=== PATIENT | female | born 1975 | race Caucasian/White ===

== ENCOUNTER → 2018-12-18 | Outpatient (CLI) | payer BC, OTHER ==
--- NOTE | 2018-12-19 11:50 | MM ---
Reason for exam: screening (asymptomatic). Last mammogram was performed 2 years and 10 months ago. History: Family history of breast cancer in paternal grandmother at age 42 and breast cancer in maternal aunt at age 58. Took hormonal contraceptives for 15 years beginning at age 34. Physical Findings: A clinical breast exam by your physician is recommended on an annual basis and results should be correlated with mammographic findings. MG 3D Screening Mammo W/Cad Bilateral CC and MLO view(s) were taken. Prior study comparison: March 02, 2016, bilateral MG 3d screening mammo w/cad. October 07, 2014, bilateral MG screening mammo w CAD. The breast tissue is heterogeneously dense. This may lower the sensitivity of mammography. No significant new finding when compared with prior studies. ASSESSMENT: Negative, BI-RAD 1 RECOMMENDATION: Routine screening mammogram of both breasts in 1 year.
== END | disposition home or self-care (01) ==
LOC: RADMAMWWP 16:29
PROVIDERS: ATTEND Family Medicine
DX: Z12.31 Encounter for screening mammogram for malignant neoplasm of breast (principal)
CPT/HCPCS: 77063; 77067

== ENCOUNTER → 2020-08-21 | Outpatient (CLI) | payer OTHER ==
--- NOTE | 2020-08-25 13:20 | MM ---
Reason for exam: screening (asymptomatic). Last mammogram was performed 1 year and 8 months ago. History: Family history of breast cancer in paternal grandmother at age 42 and breast cancer in maternal aunt at age 58. Took hormonal contraceptives for 15 years beginning at age 34. Physical Findings: A clinical breast exam by your physician is recommended on an annual basis and results should be correlated with mammographic findings. MG 3D Screening Mammo W/Cad Bilateral CC and MLO view(s) were taken. Prior study comparison: December 18, 2018, bilateral MG 3d screening mammo w/cad. March 02, 2016, bilateral MG 3d screening mammo w/cad. The breast tissue is extremely dense which could obscure a lesion on mammography. No significant changes when compared with prior studies. ASSESSMENT: Negative, BI-RAD 1 RECOMMENDATION: Routine screening mammogram of both breasts in 1 year.
== END | disposition home or self-care (01) ==
LOC: RADMAMWWP 15:45
PROVIDERS: ATTEND Obstetrics & Gynecology
DX: Z12.31 Encounter for screening mammogram for malignant neoplasm of breast (principal); Z80.3 Family history of malignant neoplasm of breast
CPT/HCPCS: 77063; 77067

== ENCOUNTER → 2020-11-18 | Outpatient (CLI) | payer OTHER ==
[2020-11-18 07:50] LABS: Basophils # (A) 0.1 k/uL (0-0.2); Basophils % (A) 1 %; Eosinophils # (A) 0.4 k/uL (0-0.7); Eosinophils % (A) 6 %; HCT 41.6 % (34.0-46.0); HGB 14.3 gm/dL (11.4-16.0); Lymphocytes # (A) 1.8 k/uL (1.0-4.8); Lymphocytes % (A) 26 %; MCH 28.8 pg (25.0-35.0); MCHC 34.3 g/dL (31.0-37.0); MCV 83.9 fL (80.0-100.0); Mean Platelet Volume 6.9; Monocytes # (A) 0.4 k/uL (0-1.0); Monocytes % (A) 6 %; Neutrophils # (A) 4.1 k/uL (1.3-7.7); Neutrophils % (A) 60 %; Platelet Count 236 k/uL (150-450); RBC 4.96 m/uL (3.80-5.40); RDW 12.6 % (11.5-15.5); WBC 6.8 k/uL (3.8-10.6)
== END | disposition home or self-care (01) ==
LOC: LABPAT 07:12
PROVIDERS: ATTEND Obstetrics & Gynecology
DX: Z01.812 Encounter for preprocedural laboratory examination (principal); N92.0 Excessive and frequent menstruation with regular cycle; N84.1 Polyp of cervix uteri
CPT/HCPCS: 36415; 85025

== ENCOUNTER 2020-11-24 07:48 | Day surgery (SDC) | payer OTHER ==
[2020-11-20 09:12] VITALS: BMI 28.1
[~2020-11-24 07:48] MED LIST: DEXAMETHASONE SOD PHOSPHATE 4 MG/ML 1 ML VIAL IV ONE; HYDROmorphone 0.5 MG/0.5 ML SYRINGE IVP PRN; LACTATED RINGERS 1,000 ML IV SCH; ONDANSETRON 4 MG/2 ML VIAL IVP ONE; Pre Op ABX Message 1 EACH MISC MISCELLANE ONE
[2020-11-24] MEDS ORDERED: PROPOFOL 10 MG/ML 20 ML VIAL IV ONE (09:17)
[2020-11-24] MEDS ORDERED: fentaNYL (PF) 50 MCG/ML 2 ML AMP ONE (09:17)
[2020-11-24] MEDS ORDERED: LIDOCAINE 1% INJ 10MG/ML (20 ML MDV) ONE (09:17)
[2020-11-24] MEDS ORDERED: MIDAZOLAM 2 MG/2 ML VIAL ONE (09:17)
--- NOTE | 2020-11-24 09:49 | P.OP ---
Date of Procedure: 11/24/20 Preoperative Diagnosis: Menorrhagia, previous uterine ablation Postoperative Diagnosis: Same, scarred endometrial cavity, grade 3 uterine prolapse Procedure(s) Performed: Hysteroscopy, D&C Anesthesia: SAMANTHAA Surgeon: Vero Villagomez Estimated Blood Loss (ml): 10 IV fluids (ml): 300 Urine output (ml): 200 Pathology: other (Endometrial curettings) Condition: stable Disposition: PACU Operative Findings: The endometrial cavity is scarred, at best I am able to enter only the lower uterine segment. There is a grade 3 uterine prolapse noted. Description of Procedure: Patient is brought to the operating suite where a general anesthetic is administered without difficulty. She's placed in the dorsal lithotomy position. The cervix, vagina, perineal bodies are all prepped and draped in usual sterile fashion. The appropriate timeout is performed to assure proper patient and procedural identification. Antibiotics are not deemed necessary. Urine hCG is negative. The bladder is drained for approximately 200 mL of clear yellow urine. Weighted speculum was placed into the vagina. Anterior lip of the cervix is grasped with a double-tooth tenaculum. Uterus only sounds to a depth of 4-5 cm. There is a grade 3 uterine prolapse noted. The cervix is gently and systematically dilated using Hanks dilators. The hysteroscope was placed. At best, I may be into the lower uterine segment. There is scarring noted from the previous ablation. I do not fourth the scar tissue in an effort to avoid uterine perforation. A small sharp curette is used and a curettage was performed of the lower uterine segment and cervix. This is sent to pathology for evaluation. The hysteroscope was once again placed and no additional tissue is visualized. All sponge needle and enhancement counts are correct. Instrumentation is removed from the vagina. Cervix and uterus are clean and dry. Patient is brought back to recovery room in very good condition with a blood pressure 122/65, pulse 60. She will follow-up with me in the office in 2 weeks. Please note that Toradol is given prior to leaving the operative suite.
[2020-11-24 09:52] VITALS: TEMP 97.6
[2020-11-24 10:03] VITALS: RESP 16
[2020-11-24 10:24] VITALS: BP 145/75; PULSE 66
== END 2020-11-24 10:38 | disposition home or self-care (01) ==
LOC: OR 07:48
PROVIDERS: ATTEND Obstetrics & Gynecology
DX: N85.00 Endometrial hyperplasia, unspecified (principal); N92.0 Excessive and frequent menstruation with regular cycle; N81.4 Uterovaginal prolapse, unspecified; E03.9 Hypothyroidism, unspecified; Z86.718 Personal history of other venous thrombosis and embolism; Z86.711 Personal history of pulmonary embolism; Z98.890 Other specified postprocedural states; Z82.49 Family history of ischemic heart disease and other diseases of the circulatory system; Z80.3 Family history of malignant neoplasm of breast; Z80.8 Family history of malignant neoplasm of other organs or systems
CPT/HCPCS: 81025; 88305; 58558; J2250; J1100; J2405; J2001; J3010; J2704

== ENCOUNTER → 2021-01-25 | Outpatient (CLI) | payer OTHER ==
[2021-01-25 10:41] LABS: African American GFR (CKD) >90 (>60 ml/min/1.73 sqM); Anion Gap 6 mmol/L; Blood Urea Nitrogen 12 mg/dL (7-17); Carbon Dioxide 26 mmol/L (22-30); Chloride 106 mmol/L (98-107); Glucose 95 mg/dL (74-99); Non-African American GFR(CKD) >90 (>60 ml/min/1.73 sqM); Potassium 4.8 mmol/L (3.5-5.1); Sodium 138 mmol/L (137-145)
[2021-01-25 10:52] LABS: Basophils # (A) 0.1 k/uL (0-0.2); Basophils % (A) 1 %; Eosinophils # (A) 0.5 k/uL (0-0.7); Eosinophils % (A) 8 %; HCT 42.5 % (34.0-46.0); HGB 13.9 gm/dL (11.4-16.0); Lymphocytes # (A) 1.9 k/uL (1.0-4.8); Lymphocytes % (A) 32 %; MCH 27.7 pg (25.0-35.0); MCHC 32.7 g/dL (31.0-37.0); MCV 84.8 fL (80.0-100.0); Mean Platelet Volume 7.1; Monocytes # (A) 0.3 k/uL (0-1.0); Monocytes % (A) 5 %; Neutrophils % (A) 50 %; Platelet Count 249 k/uL (150-450); RBC 5.01 m/uL (3.80-5.40); RDW 13.2 % (11.5-15.5); WBC 5.9 k/uL (3.8-10.6)
== END | disposition home or self-care (01) ==
LOC: LABPAT 09:47
PROVIDERS: ATTEND Obstetrics & Gynecology
DX: Z01.812 Encounter for preprocedural laboratory examination (principal); N92.0 Excessive and frequent menstruation with regular cycle; N81.4 Uterovaginal prolapse, unspecified
CPT/HCPCS: 36415; 80051; 82565; 82947; 84520; 85025; 87086

== ENCOUNTER 2021-02-02 05:47 | Day surgery (SDC) | payer OTHER ==
[2021-01-28 15:30] VITALS: BMI 28.8
[2021-02-02] MEDS: LACTATED RINGERS 1,000 ML IV SCH ×3 (06:40→21:48)
[2021-02-02] MEDS: ONDANSETRON 4 MG/2 ML VIAL IVP ONE ×2 (06:45→07:00)
[2021-02-02] MEDS: DEXAMETHASONE SOD PHOSPHATE 4 MG/ML 1 ML VIAL IV ONE ×2 (06:45→07:00)
[2021-02-02] MEDS ORDERED: HYDROmorphone 0.5 MG/0.5 ML SYRINGE IVP PRN (07:00)
[2021-02-02] MEDS ORDERED: MIDAZOLAM 2 MG/2 ML VIAL IVP ONE (07:02)
[2021-02-02] MEDS ORDERED: HYDROmorphone (PF) 1 MG/ML ONE (07:25)
[2021-02-02] MEDS ORDERED: MIDAZOLAM 2 MG/2 ML VIAL ONE (07:25)
[2021-02-02] MEDS ORDERED: SUCCINYLCHOLINE CHLORIDE 100 MG/5 ML SYR IV ONE (07:25)
[2021-02-02] MEDS ORDERED: PROPOFOL 10 MG/ML 20 ML VIAL IV ONE (07:25)
[2021-02-02] MEDS ORDERED: fentaNYL (PF) 50 MCG/ML 2 ML AMP ONE (07:25)
[2021-02-02] MEDS ORDERED: LIDOCAINE 1% INJ 10MG/ML (20 ML MDV) ONE (07:25)
[2021-02-02] MEDS ORDERED: VASOPRESSIN 20 UNIT/ML 1 ML VIAL IM ONE (07:48)
[2021-02-02] MEDS ORDERED: BACITRACIN ZINC 500 UNIT/GM OINT 28.4 GM TUBE TOPICAL ONE (07:48)
[2021-02-02] MEDS ORDERED: ONDANSETRON 4 MG/2 ML VIAL IVP PRN (08:37)
[2021-02-02] MEDS ORDERED: diphenhydrAMINE 50 MG/ML 1 ML VIAL IVP PRN (08:37)
[2021-02-02] MEDS ORDERED: ZOLPIDEM 5 MG TAB PO PRN (08:37)
[2021-02-02] MEDS ORDERED: SIMETHICONE 80 MG CHEWABLE PO PRN (08:37)
[2021-02-02] MEDS ORDERED: METOCLOPRAMIDE 5 MG/ML 2 ML VIAL IVP PRN (08:37)
[2021-02-02] MEDS ORDERED: KETOROLAC 15 MG/ML 1 ML VIAL IVP PRN (08:37)
--- NOTE | 2021-02-02 08:37 | P.OP ---
Date of Procedure: 02/02/21 Preoperative Diagnosis: Menorrhagia, adenomyosis, uterine prolapse Postoperative Diagnosis: Grade 2-3 rectocele, asymptomatic, normal-appearing ovaries bilaterally Procedure(s) Performed: Vaginal hysterectomy Anesthesia: HANANE Surgeon: Vero Villagomez Estimated Blood Loss (ml): 50 IV fluids (ml): 400 Urine output (ml): 150 Pathology: other (Cervix and uterus) Condition: stable Disposition: PACU Operative Findings: Normal-appearing ovaries bilaterally, grade 2-3 rectocele Description of Procedure: Patient is brought to the operating suite where a general anesthetic is administered without difficulty. She's placed in the dorsal lithotomy position. The appropriate timeout is performed to assure proper patient and procedural identification. Antibiotics are given. Urine hCG is negative. Bladder is drained for approximately 150 mL of clear yellow urine. Weighted speculum was placed into the vagina after the cervix, vagina, perineal body and lower abdomen are all prepped and draped in usual sterile fashion. Examination under anesthesia is unremarkable. Anterior lip of the cervix is grasped with a double-tooth tenaculum and the cervix is injected circumferentially with a dilute Pitressin solution. A [place] blade scalpel is used now to incise the mucosa circumferentially with a V positioning at 6:00. Sponge rolled finger is used to sweep the mucosa from the underlying fascial plane. This is continuously done through the procedure to avoid bladder and/or ureteral injury. Peritoneum is entered at 6:00 and suture tied with 2-0 Vicryl, held with a hemostat. The large billed speculum is then placed into the peritoneal cavity. The right uterosacral ligament is identified, skeletonized, clamped cut and suture ligated, held with a hemostat. Same procedure is carried out contralate rally. Uterine vasculature is identified, skeletonized, clamped cut and suture ligated. 2 additional pedicles are taken superior to the vessels. Again at all times the mucosa is swept well from the operative field. Anterior peritoneum is entered at 12:00, the uterus is flipped posteriorly, Radha clamps are used around the final pedicles and the cervix and uterus are removed and sent to pathology. 0 Vicryl sutures used to tie these pedicles, flashed, and retied for excellent hemostasis. Bilateral ovaries are inspected with a sponge stick, normal, left in situ per patient's wishes. All pedicles are clean and dry. 2-0 Vicryl suture is brought around in a pursestring fashion to close the peritoneum. Care is taken to protect the bowel with a sponge stick. The uterosacral ligaments are now brought across to incorporate the opposite ligament and vaginal mucosa in the vagina is closed. 3 additional [id number] sutures of 0 Vicryl are used for final cuff closure. Manjarrez catheter is placed in the urine is clear. Vagina is packed with one-inch iodophor gauze. All sponge needle and enhancement counts are correct. Patient is brought back to recovery room in excellent condition with stable vital signs including a blood pressure 126/67, pulse 53, 98% O2 saturation. Dilated INTERVENTIONAL CARDIOLOGIST is started in the recovery area.
[2021-02-02] MEDS ORDERED: NALOXONE 0.4 MG/ML 1 ML VIAL IV PRN (08:39)
[2021-02-02] MEDS ORDERED: HYDROmorphone PCA 10 MG/50 ML BAG IV PRN (08:39)
[2021-02-02 22:45] VITALS: RESP 16
--- NOTE | 2021-02-03 07:54 | P.DS ---
Providers Date of admission: 02/02/21 Expected date of discharge: 02/03/21 Attending physician: Vero Villagomez Primary care physician: Guanaco Villasenor Assessment: This is a 45-year-old female who presented with increasingly symptomatic uterine prolapse, menorrhagia, adenomyosis noted sonographically. Decision was made for vaginal hysterectomy after thorough consultation, please see dictated history and physical for details. Patient underwent vaginal hysterectomy yesterday under my care. She did well intraoperatively, estimated blood loss 50 mL's. Ovaries appeared normal and were left in situ bilaterally per her wishes. Please see dictated operative note for details. This morning the patient is doing well. She had nausea and emesis through the night, results this morning. Manjarrez catheter and vaginal packing had been removed. Urinary output has been excellent. There is no CVA tenderness. There is no vaginal bleeding. She has no complaints of pain. Patient is judged to be in very good condition for discharge home. She will follow-up with me in the office in 2 weeks. She is reminded no intercourse, tampons or douching. She will use [id number] Advil or Aleve, or Motrin as needed for pain. No heavy lifting, no driving, limited Amina old activities. She will call with any fevers shakes or chills, foul smelling or copious lochia, with the passage of large blood clots, with any pain not alleviated by [id number] products, or indeed with any concerns. Patient Condition at Discharge: Good Plan - Discharge Summary Discharge Rx Participant: No New Discharge Prescriptions: No Action Multivitamins, Thera [Multivitamin (formulary)] 1 tab PO DAILY Discharge Medication List Multivitamins, Thera [Multivitamin (formulary)] 1 tab PO DAILY 11/20/20 [History] Follow up Appointment(s)/Referral(s): Vero Villagomez MD [STAFF PHYSICIAN] - 2 Weeks Discharge Disposition: HOME SELF-CARE
[2021-02-03] MEDS ORDERED: ACETAMINOPHEN TAB 325 MG TAB PO PRN (08:39)
[2021-02-03 09:26] VITALS: BP 130/81; PULSE 65; TEMP 97.8
== END 2021-02-03 10:10 | disposition home or self-care (01) ==
LOC: OR 05:47 → 4FBP 08:48 → OR 02-03 10:10
PROVIDERS: ATTEND Obstetrics & Gynecology
DX: N92.0 Excessive and frequent menstruation with regular cycle (principal); N81.6 Rectocele; N81.4 Uterovaginal prolapse, unspecified; N80.0 Endometriosis of uterus; E03.9 Hypothyroidism, unspecified; Z86.711 Personal history of pulmonary embolism
CPT/HCPCS: 81025; 86900; 86901; 88305; 86850; 58275; J2250; J1200; J1100; J0690; J2405; J2001; J3010; J1170 ×3; J1885; J0330; J2704

== ENCOUNTER → 2021-11-16 | Outpatient (CLI) | payer BC ==
--- NOTE | 2021-11-19 12:04 | MM ---
Reason for exam: screening (asymptomatic). Last mammogram was performed 1 year and 3 months ago. History: Family history of breast cancer in paternal grandmother at age 42 and breast cancer in maternal aunt at age 58. Took hormonal contraceptives for 15 years beginning at age 34. Physical Findings: A clinical breast exam by your physician is recommended on an annual basis and results should be correlated with mammographic findings. MG 3D Screening Mammo W/Cad Bilateral CC and MLO view(s) were taken. Prior study comparison: August 21, 2020, bilateral MG 3d screening mammo w/cad. December 18, 2018, bilateral MG 3d screening mammo w/cad. The breast tissue is extremely dense which could obscure a lesion on mammography. No significant changes when compared with prior studies. ASSESSMENT: Benign, BI-RAD 2 RECOMMENDATION: Routine screening mammogram of both breasts in 1 year. Given extremely dense breasts, consider supplementary screening with ultrasound. Patient should continue monthly self breast exam.
== END | disposition home or self-care (01) ==
LOC: RADMAMWWP 06:55
PROVIDERS: ATTEND Family Medicine
DX: Z12.31 Encounter for screening mammogram for malignant neoplasm of breast (principal)
CPT/HCPCS: 77063; 77067

== ENCOUNTER → 2022-01-03 | Outpatient (CLI) | payer BC | END | disposition home or self-care (01) | LOC: RADECHMAIN 07:52 | PROVIDERS: ATTEND Family Medicine | DX: R00.2 Palpitations (principal) | CPT/HCPCS: 93225; 93226 ==

== ENCOUNTER → 2024-11-11 | Outpatient (CLI) | payer BC ==
--- NOTE | 2024-11-11 08:36 | MM ---
Reason for Exam: Screening (asymptomatic). Last mammogram was performed 3 year(s) and 0 month(s) ago. Patient History: Menarche at age 12. First Full-Term at age 25. Hysterectomy at age 45. Postmenopausal. Hormonal Contraceptives, starting at age 34 for 15 years. Paternal grandmother had breast cancer, age 42. Maternal aunt had breast cancer, age 58. Risk Values: Dorcas 5 year model risk: 1.0%. NCI Lifetime model risk: 10.0%. Prior Study Comparison: 12/18/2018 Bilateral Screening Mammogram, [facility]. 08/21/2020 Bilateral Screening Mammogram, [facility]. 11/16/2021 Bilateral Screening Mammogram, [facility]. Tissue Density: The breasts are heterogeneously dense, which may obscure small masses. Findings: Analyzed By CAD. Right breast: There is no suspicious group of microcalcifications or new suspicious mass. Left breast: There is no suspicious group of microcalcifications or new suspicious mass. Overall Assessment: Negative, BI-RAD 1 Management: Screening Mammogram of both breasts in [address] [facility] will attempt to contact patient to return for supplemental views and ultrasound if indicated. Patient should continue monthly self-breast exams. A clinical breast exam by your physician is recommended on an annual basis. This exam should not preclude additional follow-up of suspicious palpable abnormalities. Note on Dorcas scores and lifetime risk: 1. A Dorcas score greater than 3% is considered moderate risk. If this is the case, consider specialist referral to assess eligibility for a risk reducing agent. 2. If overall lifetime risk for the development of breast cancer is 20% or higher, the patient may qualify for future screening with alternating mammogram and breast MRI. [facility], , 11/11/2024 8:33 AM. Electronically signed and approved by: Osmel Alvares DO
== END | disposition home or self-care (01) ==
LOC: RADMAMWWP 07:37
PROVIDERS: ATTEND Obstetrics & Gynecology
DX: Z12.31 Encounter for screening mammogram for malignant neoplasm of breast (principal); R92.333 Mammographic heterogeneous density, bilateral breasts; Z78.0 Asymptomatic menopausal state; Z80.3 Family history of malignant neoplasm of breast; Z92.0 Personal history of contraception
CPT/HCPCS: 77063; 77067